=== PATIENT | female | born 1960 | race Caucasian/White ===

== ENCOUNTER 2024-10-02 12:22 | Outpatient (AMB) | payer OTHER, SELFPAY ==
--- NOTE | 2024-10-02 12:31 | MHC.OFFVIS ---
Vital Signs 10/02/24 12:36 Height 5 ft 3 in Weight 136 lb BMI 24.1 BP 122/70 Blood Pressure Location Rt brachial Position Sitting Pulse 58 Pulse Source Pulse Oximeter Pulse Oximetry (%) 98 Oxygen Delivery Method Room Air Intake Visit Reasons: Follow Up Intake Note: follow up essential tremors med trial lorazepam Cost Estimating Engineer Required: No Accompanied by: Self / Same As Patient Allergies house dust Allergy (Mild, Verified 10/02/24 12:35) Unknown mold Allergy (Unknown, Verified 10/02/24 12:35) Unknown Seasonal Allergies Allergy (Unknown, Verified 10/02/24 12:35) Unknown Medication List - Last Reconciled 10/02/24 by Virginia Danielle MD estradiol 0.01%(0.1mg/gram) grams vaginal ibuprofen 200 mg PO Q12H PRN loratadine (Allergy Relief (loratadine)) 10 mg PO DAILY lorazepam 0.5 mg PO BID PRN multivitamin (Daily Multi-Vitamin tablet) 1 tab PO DAILY nystatin-triamcinolone 100,000-0.1 unit/gram-% 1 appl topical TID propranolol 20 mg PO BID sertraline 37.5 mg PO DAILY vitamins A,C,U-oazt-qogkhs 2,148 mcg-113 mg-45 mg-17.4mg (PreserVision AREDS) 1 tab PO BID HPI Comments Details: 64y/o female comes for follow up of tremors and anxiety.she was started on sertraline 25 mg for anxiety . she is on propranolol 20mg bid.she rodriguez stherapy sessions every week. tremors are worse in social situations which increases her anxiety. she stopped citalopram , hydroxyzine mirtazapine- had side effects . Initial visit history-She started noticing head tremors about 15 years ago and became more visible about 8 years ago . Her mother developed head tremors in her 70s. She feels since then it has progressed.she also notices some jaw tremors, voice tremors, occasional hand tremors. 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 she feels very awkward in social situations. she used to have migraines for over 20 years which resolved after menopause. FORMERLY [facility], [facility]–1983 Medical History Migraine Biceps tendinitis Tendinitis of elbow Neck pain Anxiety Chronic migraine with aura Coarse tremors Hyperlipidemia Retinal detachment Nasal polyp Allergic rhinitis Surgical History Hx of cataract surgery Hx of detached retina repair Hx of nasal polypectomy Family History Mother Hypertension Endometriosis Father Cancer Diabetes Hypertension Alcohol abuse High cholesterol FH: kidney cancer Maternal Grandfather Cancer Paternal Grandfather Pancreatic cancer Sister Alcohol abuse Substance abuse Hypertension Social History Housing: House Alcohol intake: current Alcohol intake frequency: holidays/special occasions only Patient Tobacco Use Status: Former Tobacco user e-Cigarette/Vaping Use: Never Used Second Hand Smoke Exposure: No service: No Current occupational status: other (self employed) Current occupational exposures/hazards: No Cognitive needs: No Hearing needs: No Vision needs: Yes Physical Exam Vital Signs: Last Vital Signs Pulse 58 10/02/24 12:36 BP 122/70 10/02/24 12:36 Pulse Ox 98 10/02/24 12:36 Oxygen Delivery Method Room Air 10/02/24 12:36 BMI result Body Mass Index 24.1 Const General: cooperative, healthy appearing and comfortable Nutritional Appearance: average body habitus Orientation/consciousness: patient oriented x3 HEENT Other: no head tremors Head: Yes normal to inspection Eyes Pupils: Equal, round and reactive pupils present Neck Other: Good range of motion Neck: Yes normal visual inspection and Yes full ROM Neuro General: patient oriented x3, tone normal, moves all extremities and no focal motor deficits Cranial nerves: Yes Facial sensation intact/muscles of mastication intact, Yes Equal, round and reactive pupils present, Yes Bilaterally intact EOM present, Yes Nystagmus not present, Yes Normal facial strength present, Yes Midline tongue present, Yes Symmetric palate elevation present and Yes Ability to bilaterally elevate shoulders present Cognition (Neuro): normal cognition Gait exam (Neuro): Normal gait present Motor exam (neuro): 5/5 motor strength present throughout Coordination: [id number] test normal Assessment & Plan Assessment & Plan (1) Benign head tremor: Code(s): G25.0 - Essential tremor Category: Medical (2) Anxiety: Code(s): F41.9 - Anxiety disorder, unspecified Category: Medical Plan propranalol 20mg bid Lorazepam 0.5mg as needed ) has not used it since she started sertraline). F/u Psychotherapy Medications: Changed From propranolol 20 mg PO Q8H 30 days 90 tabs 4RF To propranolol 20 mg PO BID Coding Level of Care Code Est Pt Level 4 (51737) Complex EM visit Add On G2211 Diagnoses Benign head tremor G25.0 Anxiety F41.9
[2024-10-02 12:36] VITALS: BP 122/70; PULSE 58; O2SAT 98; BMI 24.1
--- OUTSIDE RECORDS SUMMARY | 2024-10-02 14:27 | XMS_ITS | Clinical Summary ---
Author Organization [facility] [address] [facility] Address [address] [place] [address] Phone Care Team Providers Care Supervisor [employer]oultry [employer] Name Role Phone Keven Pedro DO Primary Care Provider [phone] Allergies Active Allergy Reactions Criticality Noted Date Comments House Dust 07/13/2008 Mold 07/13/2008 Other 08/13/2007 Seasonal Allergies Medications estradioL (ESTRACE) 0.01 % (0.1 mg/gram) vaginal cream APPLY 1/2 GRAM SUNDAY, SUNDAY, SUNDAY ONLY 4 Active ibuprofen (ADVIL,MOTRIN) 800 mg tablet 2 Active loratadine (CLARITIN) 10 mg tablet Take 10 mg by mouth daily as needed. Active multivitamin,ther and minerals (VITAMINS AND MINERALS ORAL) Take by mouth daily. Active nystatin-triamcino lone (MYCOLOG II) ointment APPLY A THIN LAYER TO AFFECTED AREA THREE TIMES PER WEEK 4 Active propranoloL (INDERAL) 20 mg tablet 6 Active LORazepam (ATIVAN) 0.5 mg tablet Active diclofenac (VOLTAREN) 1 % topical gelIndications:Lat eral epicondylitis of right elbow Apply 1 g topically 3 (three) times a day. 30 g 2 5 Active Active Problems Problem Noted Date Diagnosed Date Vulvar atrophy 03/06/2022 Overview (02/09/2024): Last Assessment & Plan: Well controlled with Estrace three times per week. Continue. Lichen sclerosus 12/24/2021 Overview (02/09/2024): Last Assessment & Plan: Reviewed findings with patient. Well controlled. I reviewed the importance of regular maintenance topical steroid use to prevent symptoms, further scarring, and squamous cell cancer of the vulva. I also explained the importance of regular follow up to ensure she has no evidence of precancerous or cancerous changes and that she is not having side effects from her medication. I reviewed areas of application and amount of medication to use. Continue MWF Mycolog. Intention tremor 08/25/2015 Overview (02/09/2024): Dr. Collado Elevated cholesterol 02/02/2014 Migraine without aura 05/27/2009 Retinal detachment with retinal defect 6 Overview (02/09/2024): Right eye 2005 IMO update Allergic rhinitis 09/19/2005 Deviated nasal septum 09/19/2005 Dysplasia of cervix (uteri) 09/19/2005 Overview (02/09/2024): IMO update Nasal polyp 09/19/2005 Overview (02/09/2024): IMO update Encounters Date Type Department Care Team Description 07/08/2024 2:45 PM EDT Treatment [facility] [address] [place] [phone] Ashvin Cross, OT Right lateral epicondylitis (Primary Dx) 07/07/2024 3:00 PM EDT Office Visit Orthopedics [address] [phone] Alejandro Rubin PA Lateral epicondylitis of right elbow (Primary Dx) from Last 3 Months Immunizations Name Administration Dates Next Due Influenza Quadravalent, MDCK , 0.5ml, preservative free (Flucelvax) 6mo and older 03/21/2021,01/16/2019 Influenza Quadravalent, MDCK , 0.5ml, with preservative (Flucelvax) 6mo and older 02/19/2017 Influenza trivalent, with preservative (Fluzone; Afluria) 6mo and older 02/09/2022,01/20/2016,01/25/2015,2013 Influenza, Unspecified 02/12/2023 Td Tetanus diptheria (Tdvax) 7yo and older 08/22/2021,03/01/2004 Td, Unspecified 03/01/2004 Tdap Tetanus diptheria acell ular pertussis (Boostrix; Adacel) 7yo and older 09/22/2009 Surgical History Surgery Date Site/Laterality Comments OTHER SURGICAL HISTORY AGE 21 PROCEDURE: WY OPEN TX NASAL FX W/CONCOMITANT OPTX FXD SEPTUM; COMMENT: ONLY POLYPECTOMY OTHER SURGICAL HISTORY 2006 PROCEDURE: REPAIR DETACHED RETINA; COMMENT: RIght CATARACT EXTRACTION 2007 PROCEDURE: HISTORICAL CATARACT REMOVAL; COMMENT: Right CERVICAL BIOPSY W/ LOOP ELECTRODE EXCISION age 21 PROCEDURE: CERVIAL LEEP CONE BIOPSY SPCMN PATHOLOGY EX COLONOSCOPY 02/06/2012 PROCEDURE: WY COLONOSCOPY FLX DX W/COLLJ SPEC WHEN PFRMD; COMMENT: normal Medical History Medical History Date Comments Allergic rhinitis, cause unspecified DX:Allergic rhinitis, cause unspecified Unspecified nasal polyp DX:Unspe cified nasal polyp Dysplasia of cervix (uteri) DX:D ysplasia of cervix (uteri) Deviated nasal septum DX:Deviate d nasal septum Retinal detachment with reti nal defect, unspecified 11/20/2005 DX:Retinal detachment with r etinal defect, unspecified; COMMENT: Right eye 2005 Migraine without aura, witho ut mention of intractable migraine without mention of status migrainosus 05/27/2009 DX:Migraine without aura , without mention of intractable migraine without mention of status migrainosus Essential tremor 07/30/2014 DX:Essential tr emor; COMMENT: Dr. Collado Family History Medical History Relation Name Comments Diabetes Father Hypertension Father Other cancer Father kidney Breast cancer Father's side paternal aunt Other cancer Maternal Grandfather ??? Hypertension Mother Other: endometriosis Mother Colon cancer Neg Hx Ovarian cancer Neg Hx Prostate cancer Neg Hx Uterine cancer Neg Hx Relation Name Status Comments Father (Age 78) Cancer kid lele, DM, HTN Father's side Alive Maternal Grandfather (Age late 5 0s?) Maternal Grandmother (Age 60s) R heumatic heart disease and heart complications Mother Kidney failure; HTN, ankle swelling - CHF; pacemaker; dementia Paternal Grandmother (Age 80s) H eart Sister 1 Alive well Sister 2 Step sister hea rt and ovarian CA; HTN and thyroid prob Son Alive Healthy Social History Tobacco Use Types Packs/Day Years Used Date Smoking Tobacco: Former Cigarettes Q uit: 01/19/1995 Smokeless Tobacco: Former Tobacco Cessation:Counseling Given: Not Answered Alcohol Use Standard Drinks/Week Comments Yes 0 (1 standard drink = 0.6 oz pur e alcohol) Housing Instability Answer Date Recorde d Are you worried that in the next 2 months you may not have stable housing? No 03/17/2024 Food Access & Nutrition Answer Date Rec orded Do you have access to a vari ety of food including fruits and vegetables? Yes 03/17/2024 Access to Healthcare Answer Date Record ed Within the last 3 months, ho w many times did you visit the emergency department for your medical care? 0 03/17/2024 Health Literacy Answer Date Recorded How often do you need to hav e someone help you when you read instructions, pamphlets, or other written material from your doctor or pharmacy? Never 03/17/2024 Caregiver: How often do you need to have someone help you when you read instructions, pamphlets, or other written material from your doctor or pharmacy? Not on file 03/17/2024 Financial Risk Answer Date Recorded How hard is it for you to pa y for the very basics like food, housing, medical care, and air conditioning / heating? Not very hard 03/17/2024 Transportation Answer Date Recorded Has the lack of transportati on kept you from meetings, work, or from getting things needed for daily living? No Has the lack of transportati on kept you from medical appointments or from getting medications? No 03/17/2024 Social Isolation Answer Date Recorded How often do you feel lonely or isolated from th ose around you? Rarely 03/17/2024 Food Risk Answer Date Recorded Within the past 12 months we worried whether our food would run out before we got money to buy more. Never true 03/17/2024 Within the past 12 months th e food we bought just didn't last and we didn't have money to get more. Never true 03/17/2024 Dependent Care Answer Date Recorded Do you need help finding or paying for care for your loved ones. For example, housekeeper child care or elderly care for an older adult? No 03/17/2024 Education Answer Date Recorded Do you think completing more education or training, like finishing a GED, going to college, or learning a trade, would be helpful for you? No 03/17/2024 Employment and Income Answer Date Recor ded During the last four weeks, have you been actively looking for work? No 03/17/2024 Living Situation Answer Date Recorded What is your living situation? 1 05/17/2023 Comments No Sex and Gender Information Value Date Recorded Sex Assigned at Not on file Legal Sex Female 6:25 AM EST Gender Identity Not on file Sexual Orientation Not on file Obstetrics History Para Term AB IAB SAB Ectopic Multiple Livin g Live Births 2 1 1 1 Date Outcome GA Total Labor Labor/2nd/3rd Weight Sex Type Anes PTL Shanda A1 A5 Name Clin Para Vag-Spo nt SAB Last Filed Vital Signs Vital Sign Reading Time Taken Comments Blood Pressure 127/63 03/24/2024 1:38 PM EST Pulse 53 03/24/2024 1:38 PM EST Temperature - - Respiratory Rate 14 07/07/2024 2:52 PM EDT Oxygen Saturation - - Inhaled Oxygen Concentration - - Weight 61.7 kg (136 lb) 07/07/2024 2:52 PM EDT Height 161.3 cm (5' 3.5 ) 07/07/2024 2:52 PM EDT Body Mass Index 23.71 07/07/2024 2:52 PM EDT Plan of Treatment Upcoming Encounters Date Type Department Care Team (Late st Contact Info) Description 10/10/2024 3:00 PM EDT Office Visit Orthopedics - [place] [address] [place] [phone] Alejandro Rubin PA [address] [place] [address] Health Maintenance Due Date Last Done Comments Breast Cancer Screening 1960 Pneumococcal Vaccine: 50+ Years (1 of 1 - PCV) 2011 Zoster Vaccines (1 of 2) 2011 HIV Screening 04/08/2022 COVID-19 Vaccine ( season) 2023 03/15/2022, 04/12/2021, 09/13/2020, Additional history exists Social Influencers of Health Screening 03/17/2025 03/17/2024 Depression Screening 03/23/2025 03/23/2024, 05/25/19 Cholesterol Screening (Lipid Panel) 05/25/2028 05/25/2023 Cervical Cancer Screening: HPV 03/24/2029 03/24/2024 DTaP,Tdap,and Td Vaccines (5 - Td or Tdap) 08/23/2031 08/22/2021, 09/22/2009, 03/01/2004, Additional history exists Colorectal Cancer Screening: Colonoscopy 07/23/2033 07/24/2023 RSV Immunization Adult Patients (1 - 1-dose 75+ series) 2036 Hepatitis C Screening Completed 11/05/2003 Influenza Vaccine Completed 01/28/2024, , 02/08/2023, Additional history exists HIB Vaccines Aged Out No longer eligi ble based on patient's age to complete this topic HPV Vaccines Aged Out No longer eligi ble based on patient's age to complete this topic Hepatitis A Vaccines Aged Out No long er eligible based on patient's age to complete this topic Hepatitis B Vaccines Aged Out No long er eligible based on patient's age to complete this topic IPV Vaccines Aged Out No longer eligi ble based on patient's age to complete this topic MMR Vaccines Aged Out No longer eligi ble based on patient's age to complete this topic Meningococcal ACWY Vaccine Aged Out N o longer eligible based on patient's age to complete this topic Meningococcal B Vaccine Aged Out No l onger eligible based on patient's age to complete this topic Pneumococcal Vaccine: Pediatrics (0 to 5 Years) and At-Risk Patients (6 to 64 Years) Aged Out No longer eligible based on patient's age to complete this topic RSV Immunization Patients Under 20 months Aged Out No longer eligible based on patient's age to complete this topic Varicella Vaccines Aged Out No longer eligible based on patient's age to complete this topic Goals Goal Patient Goal Type Associated Problems Recent Progress Patient-Stated? Author Pt goals General Yes Ashvin Cross, OT Note: Arm to feel better STG 4-6 visits General On track( 025 3:42 PM EST) Yes Ashvin Cross, OT Note: Patient will report <=2/10 pain in R elbow at rest, - Met Patient will report <=6/10 pain in R elbow with activityt - Met Patient will demo improved functional use of R upper extremity as evidenced by Quick Dash score <= 30 to be able to wipe counters - Met Patient will perform initial HEP MOD I - Met Progress to LTG LTG 16 visits General On track( 025 3:43 PM EST) No Ashvin Cross, OT Note: Patient will report <=1/10 pain in R UE at rest - Met Patient will report <=3/10 pain in R UE with activity - Met Patient will demo improved functional use of R upper extremity as evidenced by Quick Dash score <= 25 to be able to perform work tasks such as lifting and carrying, and Patient will perform HEP MOD I Procedures Procedure Name Priority Date/Time Associated Diagnosis Comments HPV WITH REFLEX GENOTYPE Routine 03/24/2024 2:14 PM EST Screening for cervical cancer COLONOSCOPY Routine 07/24/2023 DEPRESSION SCREENING Routine 05/25/2023 LIPID PANEL Routine 05/25/2023 HEPATITIS C SCREENING Routine 11/05/2003 from Last 3 Months or Most Recently Relevant to Health Maintenance Results * HPV with reflex genotype (03/24/2024 2:14 PM EST) HPV Negative Negative LAB MICROBIOLOGY METHOD 03/26/2024 1:00 PM EST [facility] ([facility] [facility] Brushing/Spatula Cervix uteri structure / Unknown 03/24/2024 2:14 PM EST 03/26/2024 6:56 AM EST Eloina Caballero MD LAB MOLECULAR DIAGNOSTICS O RDERABLES [facility] Result [facility] ([email or web address] [address] [place] [address], * Colonoscopy (07/24/2023) Colonoscopy no interpretation , abstracted Anatomical Region Laterality Modality Other Historical Provider HEALTH MAINTENANCE Final Result * Depression Screening (05/25/2023) Pathologist [facility] Depression Screening abstracted Historical Provider HEALTH MAINTENANCE Final Result * (ABNORMAL) Lipid panel (05/25/2023) [facility] LDL/HDL Ratio 5(A) 0 - 4 Triglycerides 247(A) 0 - 150 mg/dL Cholesterol 218(A) 0 - 200 mg/dL HDL 47 mg/dL LDL Cholesterol 122(A) 0 - 100 mg/dL Blood Venous blood specimen / Unknown Historical Provider LAB BLOOD ORDERABLES Viki l Result * Hepatitis C Screening (11/05/2003) Pathologist [facility] Hepatitis C Screening abstracted Historical Provider HEALTH MAINTENANCE Final Result from Last 3 Months or Most Recently Relevant to Health Maintenance Insurance [facility] [employer] Care Teams Supervisor [employer] Relationship Specialty Start Date End Date Keven Pedro DO [address] [place] [address] PCP - General Internal Medicine 10/20/21
== END 2024-10-02 13:33 | disposition home or self-care (01) ==
LOC: HO.HSMS 12:22
PROVIDERS: PCP Nurse Practitioner Family; Visit Provider Psychiatry & Neurology Neurology
DX: G25.0 Essential tremor (principal); F41.9 Anxiety disorder, unspecified
CPT/HCPCS: 99214; G2211

== ENCOUNTER → 2024-10-02 12:22 | Outpatient (BNVA) | payer OTHER, SELFPAY | PROVIDERS: PCP Nurse Practitioner Family; Visit Provider Psychiatry & Neurology Neurology | DX: F41.9 Anxiety disorder, unspecified (principal); G25.0 Essential tremor | CPT/HCPCS: 99212 ==

== ENCOUNTER 2025-04-07 10:04 | Outpatient (AMB) | payer OTHER, SELFPAY ==
--- NOTE | 2025-04-07 10:14 | MHC.PC.OV ---
Vital Signs 04/07/25 10:21 Height 5 ft 3 in Weight 139 lb 2 oz BMI 24.6 BP 107/51 L Blood Pressure Location Lt brachial Position Sitting Respiration 16 Pulse 56 Pulse Source Pulse Oximeter Temp 97.5 F Temp Source Oral Pulse Oximetry (%) 100 Oxygen Delivery Method Room Air Intake Visit Reasons: PE Intake Note: patient here for CPE Tube Cleaner Required: No Is last menstrual period known: No Post menopausal: No Patient : No Allergies house dust Allergy (Mild, Verified 04/07/25 10:48) Unknown mold Allergy (Unknown, Verified 04/07/25 10:48) Unknown Seasonal Allergies Allergy (Unknown, Verified 04/07/25 10:48) Unknown Medication List - Last Reviewed 04/07/25 by NEREYDA Knapp estradiol 0.01%(0.1mg/gram) grams vaginal ibuprofen 200 mg PO Q12H PRN loratadine (Allergy Relief (loratadine)) 10 mg PO DAILY lorazepam 0.5 mg PO BID PRN multivitamin (Daily Multi-Vitamin tablet) 1 tab PO DAILY nystatin-triamcinolone 100,000-0.1 unit/gram-% 1 appl topical TID propranolol 20 mg PO BID 3 months MDD 40mg sertraline 50 mg PO DAILY turmeric root extract 1,000 mg PO BID vitamins A,C,M-vbvz-atkrzz 2,148 mcg-113 mg-45 mg-17.4mg (PreserVision AREDS) 1 tab PO BID Tobacco use date assessed: 04/07/25 Dental Screening Dental Screen Date: 04/07/25 Did you have a dental visit in the last 12 months?: Yes Did you have a dental problem in the last 6 months where you did not have access to dental care?: No Was dental information given to patient?: Patient has dentist HPI HPI Comments History of Present Illness Details 64-year-old female presents for an extended physical exam. She admits to taking her medications as prescribed without adverse reactions. She notes that her mood is generally well controlled. She sees a therapist every other week. Acute issue(s) - None Past Medical History - Detached retina, right elbow tendinitis, biceps tendinitis, migraine, anxiety, benign head tremor, elevated fasting glucose, elevated ALT Social History - Former smoker, quit 35 years ago. Does not vape. Drinks 2-3 glasses of mix drinks twice yearly. Denies recreational drug use - Has been making healthy dietary choices. Exercises routinely. She reports difficulty falling asleep d/t racing thoughts but able to maintain sleep, denies snoring Health maintenance - Last eye exam was in 07/2024 with [facility] in 08/2024 (does not know name of practice/provider) - Last dental visit was a year ago. She has a dental appointment next week. - Last tetanus vaccine likely 5 years ago - Vaccinated for the flu vaccine in 12/2024 - Last pap smear test was a year ago with [facility]: Normal - Last mammogram was in 05/2024: Negative - Last colonoscopy was with [facility] 1-2 year ago: Normal Specialists - [facility] [place] Neurology - [facility] psychiatrist [facility] Medical History Migraine Biceps tendinitis Tendinitis of elbow Neck pain Anxiety Chronic migraine with aura Coarse tremors Hyperlipidemia Retinal detachment Nasal polyp Allergic rhinitis Surgical History Hx of cataract surgery Hx of detached retina repair Hx of nasal polypectomy Family History Mother Hypertension Endometriosis Father Cancer Diabetes Hypertension Alcohol abuse High cholesterol FH: kidney cancer Maternal Grandfather Cancer Paternal Grandfather Pancreatic cancer Sister Alcohol abuse Substance abuse Hypertension Social History Housing: House Alcohol intake: current Alcohol intake frequency: holidays/special occasions only Patient Tobacco Use Status: Former Tobacco user e-Cigarette/Vaping Use: Never Used Second Hand Smoke Exposure: No service: No Current occupational status: other (self employed) Current occupational exposures/hazards: No Cognitive needs: No Hearing needs: No Vision needs: Yes Questionnaire PHQ-9 Over the last 2 weeks, how often have you been bothered by any of the following problems? 1. Little interest or pleasure in doing things: several days 2. Feeling down, depressed, or hopeless: not at all 3. Trouble falling or staying asleep, or sleeping too much: several days 4. Feeling tired or having little energy: not at all 5. Poor appetite or overeating: not at all 6. Feeling bad about yourself - or that you are a failure or have let yourself or your family down: not at all 7. Trouble concentrating on things, such as reading the newspaper or watching television: not at all 8. Moving or speaking so slowly that other people could have noticed. Or the opposite - being so fidgety or restless that you have been moving around a lot more than usual: not at all 9. Thoughts that you would be better off or of hurting yourself in some way: not at all Total score: 2 Depression Screening Interpretation: Negative Depression Screening Done: Yes 36089 - PHQ-9 Billing: Yes Source: Developed by Drs. Steven Mcnamara, Yodit Mcqueen, Brijesh Nick and colleagues, with an educational cathy from [employer]. Thrive Questionnaire Date Thrive assessed: 04/07/25 I am a: Patient What is your living situation today?: I have a steady place to live Within the past 12 months, did the food you bought not last and you didn't have the money to get more?: Never true Within the past 12 months, did you worry whether your food would run out before you got money to buy more?: Never true Do you have trouble paying for medicines?: No Do you have trouble getting transportation to medical appointments?: No Do you have trouble paying your heating and electricity bill?: No Do you have trouble taking care of your child, family member or friend?: No Do you have trouble with day-to-day activities such as bathing, preparing meals, shopping, managing finances, etc.?: No Are you currently unemployed and looking for a job?: No Are you interested in more education?: No Please select the resources that you would like help with: None Currently or been in a relationship where the following occur: No concerns reported THRIVE Score: 0 AUDIT C Alcohol Use Questionnaire (AUDIT-C) 1. How often do you have a drink containing alcohol?: Monthly or less 2. How many drinks containing alcohol do you have on a typical day when you are drinking?: 1 or 2 3. How often do you have six or more drinks on one occasion?: Never Total Score: 1 Score Reviewed/Action Taken: Yes FRANCES-7 AMB Questionnaire FRANCES-7 Date FRANCES - 7 assessed: 04/07/25 Feeling nervous, anxious, or on edge: 1 = Several days Not being able to stop or control worryin = Not at all Worrying too much about different things: 1 = Several days Trouble relaxin = Several days Being so restless that it is hard to sit still: 0 = Not at all Becoming easily annoyed or irritable: 0 = Not at all Feeling afraid as if something awful might happen: 0 = Not at all Total FRANCES-7 score (0-4 normal; 5-9 mild; 10-14 moderate; 15-21 severe): 3 Source: Developed by Drs. Steven Mcnamara, Yodit Mcqueen, Brijesh Nick and colleagues, with an educational cathy from [employer]. FRANCES-7 Assessment Billing FRANCES-7 Assessment Tool: FRANCES-7 Assessment 57276 Review of Systems Const Details: Denies chills, Denies fatigue, Denies fever(s), Denies headache(s) and Denies weakness HEENT Denies change in vision, Denies dizziness, Denies headache(s), Denies hearing loss, Denies nasal congestion, Denies sinus pain, Denies sinus pressure and Denies sore throat Card Denies chest pain, Denies lightheadedness, Denies dyspnea and Denies other (palpitations) Resp Denies cough, Denies dyspnea and Denies wheezing GI Denies abdominal pain, Denies melena, Denies hematochezia, Denies change in bowel habits, Denies dyspepsia and Denies nausea Denies hematuria and Denies dysuria Musc Denies abnormal gait, Denies myalgias, Denies arthralgias, Denies numbness and Denies tingling Skin/Breast Denies rash, Denies unusual bruising and Denies wounds Neuro Denies abnormal gait, Denies dizziness, Denies headache(s), Denies memory loss, Denies numbness, Denies Sensory deficit (Neuro), Denies tingling and Denies weakness Psych Denies anxiety, Denies depression and Denies memory loss Endo Denies cold intolerance, Denies fatigue, Denies heat intolerance, Denies polydipsia and Denies polyuria Neno/Lymph Denies easy bleeding and Denies easy bruising Aller/Immun Denies wheezing Physical exam (Primary Care) Vital Signs: Last Vital Signs Temp 97.5 F 04/07/25 10:21 Pulse 56 04/07/25 10:21 Resp 16 04/07/25 10:21 BP 107/51 L 04/07/25 10:21 Pulse Ox 100 04/07/25 10:21 Oxygen Delivery Method Room Air 04/07/25 10:21 BMI result Body Mass Index 24.6 Tobacco/Smoking Status: Tobacco use Status Tobacco use date assessed 04/07/25 04/07/25 10:21 Patient Tobacco Use Status Former Tobacco user 04/07/25 10:21 e-Cigarette/Vaping Use Never Used 04/07/25 10:21 PHQ-9: PHQ-9 Score PHQ-9: Total score 2 04/07/25 14:08 Depression Screening Interpretation: Negative Thrive Assessment: Date of Thrive Assessment Date Thrive assessed 04/07/25 04/07/25 10:16 Currently or been in a relationship where the following occur: No concerns reported Const Other: General: no acute distress, well developed, alert and awake Nutritional Appearance: well nourished Orientation/consciousness: patient oriented x3 HENMT Head: Yes normocephalic and Yes atraumatic Ears: hearing grossly normal bilaterally and TM's normal bilaterally General nose exam: Normal external nose present and Normal nares present Mouth: Normal oral and palatal mucosa present and moist mucous membranes Teeth and gingiva: dentition normal Throat: Yes oropharynx normal Eyes Pupils: Equal, round and reactive pupils present and Pupil accommodation reflex normal EOM: EOMs intact bilaterally Neck Neck: Yes normal visual inspection, Yes no lymphadenopathy and Yes trachea midline Thyroid: Thyroid normal Carotids: no bruits Lymphatic: no lymphadenopathy noted Chest Chest palpation & inspection: normal inspection of the chest Resp Effort & Inspection: normal respiratory effort Auscultation: clear to auscultation bilaterally Cardio Rate: regular rate Rhythm: regular rhythm Heart sounds: S1 normal heart sound present, S2 normal heart sound present, no gallops, no murmurs and no rubs Bruits: no abdominal aortic bruits and no carotid bruits GI Palpation (GI): No Abdominal aortic bruit present, Soft to palpation, nontender, No hepatosplenomegaly present and No Rebound tenderness present Auscultation: normal bowel sounds General: Yes no CVA tenderness Back/Spine/Pelvis Back: no CVA tenderness Cervical Spine: cervical ROM normal and No Cervical spine tenderness Thoracic/Lumbar Spine: thoraco-lumbar ROM normal, No pain with thoraco-lumbar ROM, No thoracic spinal tenderness and No lumbar spinal tenderness Skin General: warm and dry. Normal skin color. Normal skin turgor Lesions: no lesions Rashes: no rashes Trauma: no lacerations or abrasions Wounds: no wounds Nails: normal Neuro General: patient oriented x3, gait normal and CN's II-XI intact bilaterally Cranial nerves: Yes Equal, round and reactive pupils present Cognition (Neuro): normal cognition Gait exam (Neuro): Normal gait present Motor exam (neuro): 5/5 motor strength present throughout Sensory Exam: No Sensory deficit (Neuro) Deep tendon reflexes (DTR's): Right patellar reflex intensity grade: 2+ and Left patellar reflex intensity grade: 2+ Extrem General: Yes normal to inspection, No edema and No calf tenderness Psych Appearance: grossly normal Affect: normal affect Attitude: cooperative Thought process: Normal thought process present Coding Level of Care Code Est Pt Prev Care 40-64y(96454) Diagnoses Normal physical examination, routine Z00.00 Laboratory tests ordered as part of a complete physical exam (CPE) Z00.00 Sleep disturbance G47.9 Additional Codes FRANCES-7 Assessment Billing - FRANCES-7 Assessment Tool: FRANCES-7 Assessment 10240 ([id number]) PHQ-9 - 19017 - PHQ-9 Billing: Yes ([id number]) Assessment & Plan Assessment & Plan (1) Normal physical examination, routine: Code(s): Z00.00 - Encounter for general adult medical examination without abnormal findings Category: Medical Plan: No significant functional limitations noted. Continue current treatment regimen. Healthy diet and routine exercise encouraged. Perform lab work and follow-up for telehealth visit for labs review in 1 week. Return sooner with symptoms or concerns. Verbalized understanding and agreed with the plan. (2) Laboratory tests ordered as part of a complete physical exam (CPE): Code(s): Z00.00 - Encounter for general adult medical examination without abnormal findings Category: Medical Plan: Fasting labs ordered as part of a complete physical exam. Advised to fast for at least 10 hours before getting labs drawn. May drink water Verbalized understanding and agreed with treatment plan. (3) Sleep disturbance: Code(s): G47.9 - Sleep disorder, unspecified Category: Medical Plan: She reports difficulty falling asleep d/t racing thoughts but able to maintain sleep, denies snoring. Declines medication treatment at this time. Instructed on sleep hygiene. Follow-up as needed. Verbalized understanding and agreed with the plan. Orders: Orders Complete Blood Count Auto Diff Today Z00.00 - Encounter for general adult medical examination without abnormal findings Comprehensive [place]. Panel Fast Today Z00.00 - Encounter for general adult medical examination without abnormal findings TSH reflex Free T4 Today Z00.00 - Encounter for general adult medical examination without abnormal findings Vitamin D 25-OH Total Today Z00.00 - Encounter for general adult medical examination without abnormal findings Lipid Panel Today Z00.00 - Encounter for general adult medical examination without abnormal findings Microalbumin, Random (w Creat) Today Z00.00 - Encounter for general adult medical examination without abnormal findings UA CC w/rflx Micro + Cult Today Z00.00 - Encounter for general adult medical examination without abnormal findings
[2025-04-07 10:21] VITALS: BP 107/51; PULSE 56; RESP 16; TEMP 36.4; O2SAT 100; BMI 24.6
== END 2025-04-07 11:09 | disposition home or self-care (01) ==
LOC: HO.HMCFM 10:05
PROVIDERS: PCP Nurse Practitioner Family; Visit Provider Nurse Practitioner Family
DX: Z00.00 Encounter for general adult medical examination without abnormal findings (principal); G47.9 Sleep disorder, unspecified

== ENCOUNTER → 2025-04-07 10:04 | Outpatient (BNVA) | payer OTHER, SELFPAY | PROVIDERS: PCP Nurse Practitioner Family; Visit Provider Nurse Practitioner Family | DX: Z00.00 Encounter for general adult medical examination without abnormal findings (principal); G47.9 Sleep disorder, unspecified | CPT/HCPCS: 96127; 99396 ==

== ENCOUNTER 2025-04-10 08:46 | Outpatient (REF) | payer OTHER, SELFPAY ==
[2025-04-10 11:09] LABS: MANUAL DIFF FLAG NO
[2025-04-10 11:18] LABS: Hematocrit 42.1 % (37.0-47.0); Hemoglobin 14.0 g/dl (12.0-16.0); Imm Gran Abs Auto 0.01 X10*3/uL (0.00-0.03); Imm Gran Pct Auto 0.2 % (0.0-0.4); Lymphocytes Absolute Auto 1.9 X10*3/uL (1.2-4.9); Mean Corpuscular HGB Conc 33.3 g/dl (31.0-35.0); Mean Corpuscular Hemoglobin 32.0 pg (27.0-33.0); Mean Corpuscular Volume 96.3 fL (80.0-98.0); NRBC Abs Auto 0.000 X10*3/uL (0.0-0.012); NRBC Pct Auto 0.0 /100WBC (0.0-0.2); Platelet Count 243 X10*3/uL (160-400); Red Blood Count 4.37 X10*6/uL (4.20-5.50); White Blood Count 4.9 X10*3/uL (4.8-10.8)
[2025-04-10 11:49] LABS: Alanine Aminotransferase 28 U/L (0-31); Albumin Level 4.3 g/dL (3.5-5.0); Alkaline Phosphatase 61 U/L (39-117); Anion Gap 11 (12-20); Aspartate Amino Transferase 24 U/L (5-31); Blood Urea Nitrogen 17 mg/dL (9-16); Calcium 9.5 mg/dL (8.4-10.2); Carbon Dioxide 28 mmol/L (22-29); Chloride 105 mmol/L (96-108); Cholesterol 200 mg/dL (<200); Estimated Glomerular Filt Rate > 60; HDL Cholesterol 46 mg/dL (>40); Potassium 4.0 mmol/L (3.3-5.1); Sodium 140 mmol/L (135-145); Total Protein 6.7 g/dL (6.5-8.0); Triglycerides 134 mg/dL (<150)
[2025-04-10 11:54] LABS: Glucose Urine UA Negative (Negative); PH 6.0 (5.0-9.0); Specific Gravity - Urine 1.015 (1.005-1.025)
[2025-04-10 11:55] LABS: Appearance Urine Clear
== END 2025-04-10 08:47 | disposition home or self-care (01) ==
LOC: HO.WFDLDS 08:46
PROVIDERS: Visit Provider Nurse Practitioner Family
DX: Z00.00 Encounter for general adult medical examination without abnormal findings (principal)
CPT/HCPCS: 36415; 80053; 80061; 81003; 82043; 82306; 82570; 84443; 85025

== ENCOUNTER 2025-04-17 15:11 | Outpatient (AMB) | payer OTHER, SELFPAY ==
--- NOTE | 2025-04-17 15:00 | A.OFFPC_ITS ---
Intake Visit Reasons: 2 wks tele labs review Intake Note: patient here for 2wks Telehealth follow up for labs review Host Hostess Required: No Is last menstrual period known: No Post menopausal: No Patient : No Allergies house dust Allergy (Mild, Verified 04/17/25 15:01) Unknown mold Allergy (Unknown, Verified 04/17/25 15:01) Unknown Seasonal Allergies Allergy (Unknown, Verified 04/17/25 15:01) Unknown Tobacco use date assessed: 04/17/25 Dental Screening Dental Screen Date: 04/17/25 Did you have a dental visit in the last 12 months?: Yes Did you have a dental problem in the last 6 months where you did not have access to dental care?: No Was dental information given to patient?: Patient has dentist HPI HPI Comments History of Present Illness Details 64-year-old female presents for a tele alth visit for review of recent lab results. She admits to taking her medications as prescribed without adverse reactions. She offers no complaints and denies acute symptoms at this time. [facility] Medical History Migraine Biceps tendinitis Tendinitis of elbow Neck pain Anxiety Chronic migraine with aura Coarse tremors Hyperlipidemia Retinal detachment Nasal polyp Allergic rhinitis Surgical History Hx of cataract surgery Hx of detached retina repair Hx of nasal polypectomy Family History Mother Hypertension Endometriosis Father Cancer Diabetes Hypertension Alcohol abuse High cholesterol FH: kidney cancer Maternal Grandfather Cancer Paternal Grandfather Pancreatic cancer Sister Alcohol abuse Substance abuse Hypertension Social History Housing: House Alcohol intake: current Alcohol intake frequency: holidays/special occasions only Patient Tobacco Use Status: Former Tobacco user e-Cigarette/Vaping Use: Never Used Second Hand Smoke Exposure: No service: No Current occupational status: other (self employed) Current occupational exposures/hazards: No Cognitive needs: No Hearing needs: No Vision needs: Yes Questionnaire Thrive Questionnaire Date Thrive assessed: 04/07/25 AUDIT C Alcohol Use Questionnaire (AUDIT-C) 2. How many drinks containing alcohol do you have on a typical day when you are drinking?: 1 or 2 3. How often do you have six or more drinks on one occasion?: Never Total Score: 0 FRANCES-7 AMB Questionnaire FRANCES-7 Date FRANCES - 7 assessed: 04/07/25 Source: Developed by Drs. Steven Mcnamara, Yodit Mcqueen, Brijesh Nick and colleagues, with an educational cathy from [employer]. Review of Systems Const Details: Denies chills, Denies fatigue, Denies fever(s), Denies headache(s) and Denies weakness Cardiac Denies chest pain, Denies claudication, Denies leg edema, Denies lightheadedness, Denies palpitations, Denies dyspnea, Denies dyspnea on exertion, Denies orthopnea and Denies other (Loss of consciousness) Resp Denies cough, Denies excessive phlegm production, Denies dyspnea, Denies dyspnea on exertion, Denies snoring and Denies wheezing Physical exam (Primary Care) Tobacco/Smoking Status: Tobacco use Status Tobacco use date assessed 04/17/25 04/17/25 15:02 Patient Tobacco Use Status Former Tobacco user 04/17/25 15:02 e-Cigarette/Vaping Use Never Used 04/17/25 15:02 Thrive Assessment: Date of Thrive Assessment Date Thrive assessed 04/07/25 04/17/25 15:02 Const Other: Patient is alert and oriented x3 Telehealth Telehealth Telehealth Platform: Telephone Location of provider rendering services: practice address Location of patient: address on file Patient Identification confirmed using: Name, : Yes Telehealth method: voice only Patient verbally consented to treatment: Yes Patient verbally consented to billing insurance company: Yes Patient informed of any privacy concerns related to visit: Yes Coding Level of Care Code Tele Est Pt Level 3 (29963) Diagnoses Hyperlipidemia E78.5 Time Spent (min) 10 Assessment & Plan Assessment & Plan (1) Hyperlipidemia: Code(s): E78.5 - Hyperlipidemia, unspecified Category: Medical Plan: Recent total cholesterol and LDL levels are slightly elevated, 200 and 128 respectively. Advised to limit foods high in saturated fat and avoid foods high in trans fat. Routine exercise encouraged. Fast for 10-12 hours, may drink water, and perform lipid panel blood work a few days before next visit. Follow-up with HANANE Rodriguez as planned for transfer of care. Return sooner with symptoms or concerns. Verbalized understanding and agreed with the plan. Orders: Orders Lipid Panel 2 Months E78.5 - Hyperlipidemia, unspecified
--- OUTSIDE RECORDS SUMMARY | 2025-04-17 16:22 | XMS_ITS | Clinical Summary ---
Author Organization [facility] [address] [place] [address] [place] [phone] Phone Care Team Providers Care Civil Service Clerk Name Role Phone Keven Pedro DO Primary Care Provider [phone] Allergies Active Allergy Reactions Criticality Noted Date Comments House Dust 07/13/2008 Mold 07/13/2008 Other 08/13/2007 Seasonal Allergies Medications loratadine (CLARITIN) 10 mg tablet Take 10 mg by mouth daily as needed. Active multivitamin,the r and minerals (VITAMINS AND MINERALS ORAL) Take by mouth daily. Active propranoloL (INDERAL) 20 mg tablet 01/12/20 16 Active LORazepam (ATIVAN) 0.5 mg tablet Active sertraline (ZOLOFT) 25 mg tablet Take 1 tablet (25 mg total) by mouth 1 (one) time each day. Active nystatin-triamci nolone (MYCOLOG II) ointment Apply topically 3 (three) times a week. APPLY A THIN LAYER TO AFFECTED AREA THREE TIMES PER WEEK 15 g 3 04/06/20 25 Active estradioL (ESTRACE) 0.01 % (0.1 mg/gram) vaginal cream APPLY 1/2 GRAM SUNDAY, SUNDAY, SUNDAY ONLY 42.5 g 2 04/06/20 25 Active ibuprofen (ADVIL,MOTRIN) 800 mg tablet 04/26/20 22 025 Discontinued diclofenac (VOLTAREN) 1 % topical gelIndications:L ateral epicondylitis of right elbow Apply 1 g topically 3 (three) times a day. 30 g 2 05/08/19 25 025 Discontinued estradioL (ESTRACE) 0.01 % (0.1 mg/gram) vaginal cream APPLY 1/2 GRAM SUNDAY, SUNDAY, SUNDAY ONLY 42.5 g 1 12/17/19 25 025 Discontinued(R eorder) nystatin-triamci nolone (MYCOLOG II) ointment Apply topically 3 (three) times a week. APPLY A THIN LAYER TO AFFECTED AREA THREE TIMES PER WEEK 15 g 1 12/18/19 25 025 Discontinued(R eorder) Active Problems Problem Noted Date Diagnosed Date [...] 09/19/2005 Dysplasia of cervix (uteri) 09/19/2005 Overview (04/06/2025): IMO update Pap 2020 NIL Pap 2023 NIL neg HPV Nasal polyp 09/19/2005 Overview (02/09/2024): IMO [id number] update Encounters Date Type Department Care Team Description 04/06/2025 9:00 AM EST Office Visit Obstetrics and Gynecology [address] [phone] Dina Enriquez, FAVIO Women's annual routine gynecological examination (Primary Dx); Vulvar atrophy; Lichen sclerosus from Last 3 Months Immunizations Immunization Administration Dates Next Due Influenza Quadravalent, MDCK [...] Comments OTHER SURGICAL HISTORY AGE 21 PROCEDURE: NM OPEN TX NASAL FX W/CONCOMITANT OPTX FXD SEPTUM; COMMENT: ONLY POLYPECTOMY OTHER SURGICAL HISTORY 2006 PROCEDURE: REPAIR DETACHED RETINA; COMMENT: RIght CATARACT EXTRACTION 2007 PROCEDURE: HISTORICAL CATARACT REMOVAL; COMMENT: Right CERVICAL BIOPSY W/ LOOP ELECTRODE EXCISION age 21 PROCEDURE: CERVIAL LEEP CONE BIOPSY [facility] PATHOLOGY EX COLONOSCOPY 02/06/2012 PROCEDURE: NM COLONOSCOPY FLX DX W/COLLJ SPEC WHEN PFRMD; [...] r etinal defect, unspecified; COMMENT: Right eye 2006 Migraine without aura, witho ut mention of [...] Years Used Date Smoking Tobacco: Former Cigarettes 0.3 Q uit: 01/19/1995 Smokeless Tobacco: Former Tobacco Cessation:Counseling Given: Not Answered Alcohol Use Standard Drinks/Week Comments Yes 0 (1 standard drink = 0.6 oz pur e alcohol) Housing Instability Answer Date Recorde d Are you worried that in the next 2 months you may not have stable housing? No 03/30/2025 Food Access & Nutrition Answer Date Rec orded Do you have access to a vari ety of food including fruits and vegetables? Yes 03/30/2025 Access to Healthcare Answer Date Record ed Within the last 3 months, ho w many times did you visit the emergency department for your medical care? 0 03/30/2025 Health Literacy Answer Date Recorded How often do you need to hav e someone help you when you read instructions, pamphlets, or other written material from your doctor or pharmacy? Never 03/30/2025 Caregiver: How often do you need to have someone help you when you read instructions, pamphlets, or other written material from your doctor or pharmacy? Not on file 03/30/2025 Financial Risk Answer Date Recorded How hard is it for you to pa y for the very basics like food, housing, medical care, and air conditioning / heating? Not very hard 03/30/2025 Transportation Answer Date Recorded Has the lack of transportati on kept you from meetings, work, or from getting things needed for daily living? No Has the lack of transportati on kept you from medical appointments or from getting medications? No 03/30/2025 Social Isolation Answer Date Recorded How often do you feel lonely or isolated from th ose around you? Rarely 03/30/2025 Food Risk Answer Date Recorded Within the past 12 months we worried whether our food would run out before we got money to buy more. Never true 03/30/2025 Within the past 12 months th e food we bought just didn't last and we didn't have money to get more. Never true 03/30/2025 Dependent Care Answer Date Recorded Do you need help finding or paying for care for your loved ones. For example, child care group leader or elderly care for an older adult? No 03/30/2025 Education Answer Date Recorded Do you think completing more education or training, like finishing a GED, going to college, or learning a trade, would be helpful for you? No 03/30/2025 Employment and Income Answer Date Recor ded During the last four weeks, have you been actively looking for work? No 03/30/2025 Living Situation Answer Date Recorded What is your living situation? Unrecognized valu e 03/30/2025 Comments No Sex and Gender Information Value Date Recorded Sex Assigned at Not on file Legal Sex Female 6:25 AM EST Gender Identity Not on file Sexual Orientation Not on file Obstetrics History * This document contains information received from the source organization and may not represent a complete record from that organization. Para Term AB IAB SAB Ectopic Multiple Livin g Live Births 2 1 Date Outcome GA Total Labor Labor/2nd/3rd Weight Sex Type Anes PTL Shanda A1 A5 Name Clin Para Vag-Spo nt Last Filed Vital Signs Vital Sign Reading Time Taken Comments Blood Pressure 130/61 04/06/2025 8:49 AM EST Pulse 64 04/06/2025 8:49 AM EST Temperature - - Respiratory Rate 14 07/07/2024 2:52 PM EDT Oxygen Saturation - - Inhaled Oxygen Concentration - - Weight 62.6 kg (138 lb) 04/06/2025 8:49 AM EST Height 160 cm (5' 3 ) 04/06/2025 8:49 AM EST Body Mass Index 24.45 04/06/2025 8:49 AM EST Plan of Treatment Health Maintenance Due Date Last Done Comments Breast Cancer Screening 1960 Drug Screen 1960 Non-Opioid Controlled Substance Agreement 1961 Pneumococcal Vaccine: 50+ Years (1 of 1 - PCV) 2011 Zoster Vaccines (1 of 2) 2011 HIV Screening 04/08/2022 COVID-19 Vaccine (4 - season) 2024 03/15/2022, 04/12/2021, 09/13/2020, Additional history exists Social Influencers of Health Screening 03/30/2026 03/30/2025 Cholesterol Screening (Lipid Panel) 05/25/2028 05/25/2023 Cervical Cancer Screening: HPV 03/24/2029 03/24/2024 DTaP,Tdap,and Td Vaccines (5 - Td or Tdap) 08/23/2031 08/22/2021, 09/22/2009, 03/01/2004, Additional history exists Colorectal Cancer Screening: Colonoscopy 07/23/2033 07/24/2023 RSV Immunization Adult Patients (1 - 1-dose 75+ series) 2036 Hepatitis C Screening Completed 11/05/2003 Influenza Vaccine Completed 02/05/2025, , 02/12/2023, Additional history exists Depression Screening Completed 03/30/2025, 05/25/19 24 HIB Vaccines Aged Out No longer eligi [...] LAB MICROBIOLOGY METHOD 03/26/2024 1:00 PM EST [facility] Brushing/Spatula Cervix uteri structure / Unknown 03/24/2024 2:14 PM EST 03/26/2024 6:56 AM EST Eloina Caballero MD LAB MOLECULAR DIAGNOSTICS O RDERABLES Final Result [facility] [address] [place] [address], * Colonoscopy (07/24/2023) Pathologist [facility] Colonoscopy no interpretation , abstracted Anatomical Region Laterality Modality Other Historical Provider HEALTH MAINTENANCE Final Result * Depression Screening (05/25/2023) Pathologist [facility] Depression Screening abstracted Historical Provider HEALTH MAINTENANCE Final Result * (ABNORMAL) Lipid panel (05/25/2023) [facility] LDL/HDL Ratio 5(A) 0 - 4 Triglycerides 247(A) 0 - 150 mg/dL Cholesterol 218(A) 0 - 200 mg/dL HDL 47 mg/dL LDL Cholesterol 122(A) 0 - 100 mg/dL Blood Venous blood specimen / Unknown Result [facility] Historical Provider LAB BLOOD ORDERABLES Viki l Result * Hepatitis C Screening (11/05/2003) Pathologist [facility] Hepatitis C Screening abstracted Historical Provider HEALTH MAINTENANCE Final Result from Last 3 Months or Most Recently Relevant to Health Maintenance Insurance [facility] [employer] Care Teams Civil Service Clerk Relationship Specialty Start Date End Date Keven Pedro DO [address] [place] [address] PCP - General Internal Medicine 10/20/21
== END 2025-04-17 15:23 | disposition home or self-care (01) ==
LOC: HO.HMCFM 15:11
PROVIDERS: PCP Nurse Practitioner Family; Visit Provider Nurse Practitioner Family
DX: E78.5 Hyperlipidemia, unspecified (principal)